=== PATIENT | male | born 1975 | race Caucasian/White ===

== ENCOUNTER 2023-07-05 09:04 | Outpatient (AMB) | payer OTHER, SELFPAY ==
--- NOTE | 2023-07-05 09:11 | A.OFFVIS_ITS ---
Intake Intake Visit Reasons: Penile pain Intake Note: New Patient presents for initial visit for penile pain Urology Medications: none Blood Thinner: none Geospatial Scientist Required: No Accompanied by: Self / Same As Patient Allergies Penicillins [PENICILLINS] Allergy (Unknown, Unverified 07/05/23 20:42) HIVES Medication List - Last Reconciled 07/05/23 by RICHARD Harmon methadone 115ML orally daily; omeprazole 20 mg PO BID quetiapine mg PO sertraline 50 mg PO DAILY sulfamethoxazole-trimethoprim 800-160 mg (Bactrim DS) 1 tab PO BID 14 days topiramate mg PO HPI HPI Comments History of Present Illness Details Andrea is a 45-year-old male patient of Dr. Guevara. 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 He presents to the office today as a new patient for ongoing urological issues. He reports having followed up with [facility] in the past however is looking for other urological options. He discusses over the last 4-5 years to have been experiencing lower urinary tract symptoms. He describes these symptoms to be intermittent however feels when symptoms do reoccur they are progressive. He discusses experiencing urinary frequency, urinary urgency, and dysuria. He also reports feeling intermittent penile pain with urination, during intercourse, and at rest. He discusses at length his concerns regarding his penis. He feels his penis is getting smaller and feels it is sinking into his pelvic area. He discusses previous workup with [facility] and undergoing in office urodynamics and describes this as a terrible experience. He discusses being told by urologist at [facility] to undergo in office cystoscopy however given his past medical history of anxiety and expierence with urodynamics he does not feel he is able to undergo an office cystoscopy and thus is looking for other options. In office urinalysis results reviewed with the patient today. 2+ microscopic hematuria. He does report over 30 year history of cigarette smoking. He reports smoking approximately 1 pack per day. Discussed at length potential causes of microscopic hematuria. Discussed urine cytology, CT urogram, and cystoscopy. In review of patient's chart it appears CT of the abdomen was ordered and performed. Kidneys and ureters with no hydronephrosis, stones, or suspicious masses. The bladder is normal. He discusses at length his follow-up with endocrinology this Tuesday for a noted 8 mm left adrenal nodule noted on CT as well as MRI. Discussed at length potential causes of lower urinary tract symptoms patient has been experiencing. He reports ongoing issues with constipation and is following up with GI regarding this issue. In office LIEN performed boggy prostate noted otherwise no lesions or masses palpated. When asked he denies incontinence, foul smelling urine, changes to urinary stream, flank pain, fever, and or chills. 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 Hemorrhoids Chronic headaches GERD (gastroesophageal reflux disease) Ganglion Foot pain, right Fatty liver Family history of alcohol abuse Erectile dysfunction Constipation Cocaine use disorder in remission Bipolar disorder Arthralgia Anxiety Alcohol use disorder Abdominal pain Review of Systems Const Reports as per HPI Eyes Reports no additional complaints ENT Reports no additional complaints Card Reports as per HPI Resp Reports no additional complaints GI Reports as per HPI Reports as per HPI Musc Reports as per HPI Neuro Reports as per HPI Psych Reports as per HPI Endo Reports as per HPI Physical Exam Const General: cooperative, comfortable, no acute distress, well developed, alert and awake Orientation/consciousness: patient oriented x3 Limitations: no limitations HEENT Head: Yes normal to inspection, Yes normocephalic and Yes atraumatic Ears: hearing grossly normal bilaterally Eyes General: appearance normal, both eyes and all related structures Neck Neck: Yes normal visual inspection and Yes trachea midline Chest Chest palpation & inspection: normal inspection of the chest Resp Effort & Inspection: normal respiratory effort and able to speak in complete sentences Cardio Rate: regular rate GI Inspection: Yes normal to inspection Rectal Exam - Male: Yes other (as per HPI) General: Yes no CVA tenderness Male General Exam: Yes normal external exam Penis: normal penis and circumcised Meatus: meatus normal Scrotum: scrotum normal Testes: Testes normal Back/Spine/Pelvis Back: no CVA tenderness Skin General skin exam: no rashes or lesions noted Neuro General: patient oriented x3 Extrem General: Yes normal to inspection Psych Appearance: grossly normal Mental Status: mental status grossly normal Speech and movement: Normal speech and movement present and Clear speech present Affect: normal affect Attitude: cooperative Thought process: Perseverating thought process present Thought content: Normal thought content present Insight: Fair insight present (Psych) Judgement: Fair judgement present (Psych) Results AMB Urinalysis, Automated UA Leukoctes 15 Mechelle/uL Last Edit by [employer] on 07/05/23 10:07 UA Nitrite Negative Last Edit by [employer] on 07/05/23 10:07 UA Urobilinogen 0.2 mg/dL Last Edit by [employer] on 07/05/23 10:07 UA Protein 15 mg/dL Last Edit by [employer] on 07/05/23 10:07 UA pH 5.5 Last Edit by [employer] on 07/05/23 10:07 UA Blood 10 Festus/uL Last Edit by [employer] on 07/05/23 10:07 UA Specific [place] 1.030 Last Edit by [employer] on 07/05/23 10:07 UA Ketone Positive Last Edit by [employer] on 07/05/23 10:07 UA Bilirubin 1 mg/dL Last Edit by [employer] on 07/05/23 10:07 UA Glucose 0 mg/dL Last Edit by [employer] on 07/05/23 10:07 Results Reviewed Results Reviewed: Laboratory Last Values Urine pH (Auto) 5.5 07/05/23 10:06 Specific [place] (Auto) 1.030 07/05/23 10:06 Urine Protein (Auto) 15 mg/dL 07/05/23 10:06 Glucose (UA)(Auto) 0 mg/dL 07/05/23 10:06 Urine Ketones (Auto) Positive 07/05/23 10:06 Urine Blood (Auto) 10 Festus/uL 07/05/23 10:06 Urine Nitrite (Auto) Negative 07/05/23 10:06 Urine Bilirubin (Auto) 1 mg/dL 07/05/23 10:06 Urine Urobilinogen (Auto) 0.2 mg/dL 07/05/23 10:06 Leukocyte Esterase (Auto) 15 Mechelle/uL 07/05/23 10:06 Assessment & Plan Assessment & Plan (1) Lower urinary tract symptoms: Code(s): R39.9 - Unspecified symptoms and signs involving the genitourinary system (2) Prostatitis: Code(s): N41.9 - Inflammatory disease of prostate, unspecified (3) Microscopic hematuria: Code(s): R31.29 - Other microscopic hematuria (4) Nicotine addiction: Code(s): F17.200 - Nicotine dependence, unspecified, uncomplicated Plan In office urinalysis results reviewed with the patient today; as noted above; will send for urine cytology. Recent CT results reviewed with the patient today; as noted above. LIEN performed boggy prostate noted; discussed prostatitis Start Bactrim as discussed and prescribed. Discussed at length potential causes for lower urinary tract symptoms patient is experiencing. Discussed attempting to schedule for cystoscopy under sedation due to patient's past medical history; patient reports he would like to think about this. Discussed, educated, and stressed the importance of limiting/quitting smoking for overall health and well-being. Reassurance provided regarding patient's thoughts of penile atrophy. Discussed possible near future transrectal ultrasound for further assessment of possible ejaculatory duct obstruction Discussed at length lifestyle modifications for erectile dysfunction Discussed, educated, and encouraged on the importance of drinking plenty of water daily. Discussed bladder triggers/irritants. Medical release form signed will attempt to obtain previous urology records for continuity of care. Will obtain PSA in 6 weeks Follow-up in 1 month with [facility]; or sooner with any issues, concerns, and or questions. Orders: Orders AMB Urinalysis Automated Today Z13.9 - Encounter for screening, unspecified Urine Cytology Today Z13.9 - Encounter for screening, unspecified Prostate Specific Antigen 6 Weeks N40.0 - Benign prostatic hyperplasia without lower urinary tract symptoms Medications: New sulfamethoxazole-trimethoprim 800-160 mg (Bactrim DS) 1 tab PO BID 14 days 28 tabs 0RF N39.0 - Urinary tract infection, site not specified Patient Instructions: The patient had an opportunity to ask questions regarding the treatment plan. All questions were answered. Physical exam, labs, and imaging were discussed and reviewed in detail. As well as risks, benefits, and discussion of treatment choices. No major barriers to understanding were identified. The patient expressed understanding and agreement with the above treatment plan. The patient was made aware they should contact our office by phone for worsening of their current condition, the appearance of new symptoms, or with any questions or concerns. Compliance is encouraged with any medications and follow up testing that is ordered. It is a privilege to be allowed the opportunity to participate in? your urological care.? Again, if you have any questions or concerns If you have any questions or concerns please do not hesitate to contact me. The office is [phone]. This note is constructed using voice recognition software. While every effort has been made to ensure accuracy thermospray operator errors may have been included. Yours sincerely, RICHARD Harmon Coding Level of Care Code New Pt Level 4 (31254) Diagnoses Lower urinary tract symptoms R39.9 Prostatitis N41.9 Microscopic hematuria R31.29 Nicotine addiction F17.200 Time Spent (min) 60
== END 2023-07-05 10:26 | disposition home or self-care (01) ==
PROVIDERS: PCP Internal Medicine; Visit Provider Nurse Practitioner Family
DX: R39.9 Unspecified symptoms and signs involving the genitourinary system (principal); N41.9 Inflammatory disease of prostate, unspecified; R31.29 Other microscopic hematuria; F17.200 Nicotine dependence, unspecified, uncomplicated
CPT/HCPCS: 99204

== ENCOUNTER 2023-07-05 09:04 | Outpatient (REF) | payer OTHER, SELFPAY ==
[2023-07-05 16:58] LABS: Urine Cytology See Pathology rpt
== END 2023-07-05 09:05 | disposition home or self-care (01) ==
LOC: HO.LNP 09:04
PROVIDERS: PCP Internal Medicine; Visit Provider Nurse Practitioner Family
DX: R39.9 Unspecified symptoms and signs involving the genitourinary system (principal); N41.9 Inflammatory disease of prostate, unspecified; R31.29 Other microscopic hematuria; F17.200 Nicotine dependence, unspecified, uncomplicated
CPT/HCPCS: 81003; 88112; 99202

== ENCOUNTER 2023-08-16 11:41 | Outpatient (AMB) | payer OTHER, SELFPAY ==
--- NOTE | 2023-08-16 11:50 | A.OFFVIS_ITS ---
Intake Intake Visit Reasons: 1 month f/u with [facility] Intake Note: Patient presents for follow up visit for prosatitis, psa lab results (psa 0.7) Urology Medications: none Blood Thinner: none Job Training Supervisor Required: No Accompanied by: Unknown Allergies Penicillins [PENICILLINS] Allergy (Unknown, Unverified 08/16/23 14:48) HIVES Medication List - Last Reconciled 08/16/23 by OSMIN Harmon-CLINT methadone 115ML orally daily; omeprazole 20 mg PO BID quetiapine mg PO sertraline 50 mg PO DAILY topiramate mg PO HPI HPI Comments History of Present Illness Details Andrea is a 48-year-old male patient of Dr. Guevara who was accompanied by his least at today's office visit. 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 He presents to the office today for follow-up. Of note, patient was seen approximately 6 weeks ago as a new patient for ongoing urological issues. He reports having followed up with [facility] in the past however is looking for other urological options. He discusses over the last 4-5 years to have been experiencing lower urinary tract symptoms. He describes these symptoms to be intermittent however feels when symptoms do reoccur they are progressive. He discusses experiencing urinary frequency, urinary urgency, urinary hesitancy, and dysuria. He also reports feeling intermittent penile pain with urination, during intercourse, and at rest. He discusses at length his concerns regarding his penis. He feels his penis is getting smaller and feels it is sinking into his pelvic area. He discusses previous workup with [facility] and undergoing in office urodynamics and describes this as a terrible experience. He discusses being told by urologist at [facility] to undergo in office cystoscopy however given his past medical history of anxiety and expierence with urodynamics he does not feel he is able to undergo an office cystoscopy and thus is looking for other options. Patient with previous CT of the abdomen noting kidneys and ureters with no hydronephrosis, stones, or suspicious masses. The bladder is normal. He reports noting episodes of gross hematuria. In office urinalysis today with no microscopic hematuria noted. Recent PSA results reviewed with the patient today. 07/30--0.7. Discussed given smoking history of 30+ years of approximately 1 pack per day and gross hematuria will arrange for cystoscopy under sedation given patient's history of anxiety. Patient discusses at length feeling multiple health issues that are ongoing however all workup has been essentially negative. He discusses following up with endocrinology for his 8 mm left adrenal nodule noted on CT and MRI. He also reports ongoing issues with constipation and is following up with GI regarding this issue and feels during last office visit LIEN was helpful in relieving his constipation. When asked he denies incontinence, foul smelling urine, changes to urinary stream, flank pain, fever, and or chills. Urine cytology 06/30 Negative for high-grade urothelial carcinoma. 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 Hemorrhoids Chronic headaches GERD (gastroesophageal reflux disease) Ganglion Foot pain, right Fatty liver Family history of alcohol abuse Erectile dysfunction Constipation Cocaine use disorder in remission Bipolar disorder Arthralgia Anxiety Alcohol use disorder Abdominal pain Review of Systems Const Reports as per HPI Eyes Reports no additional complaints ENT Reports no additional complaints Card Reports as per HPI Resp Reports no additional complaints GI Reports as per HPI Reports as per HPI Musc Reports as per HPI Neuro Reports as per HPI Psych Reports as per HPI Endo Reports as per HPI Physical Exam Const General: cooperative, comfortable, no acute distress, well developed, alert and awake Orientation/consciousness: patient oriented x3 Limitations: no limitations HEENT Head: Yes normal to inspection, Yes normocephalic and Yes atraumatic Ears: hearing grossly normal bilaterally Eyes General: appearance normal, both eyes and all related structures Neck Neck: Yes normal visual inspection and Yes trachea midline Chest Chest palpation & inspection: normal inspection of the chest Resp Effort & Inspection: normal respiratory effort and able to speak in complete sentences Cardio Rate: regular rate GI Inspection: Yes normal to inspection Rectal Exam - Male: Yes other (as per HPI) General: Yes no CVA tenderness Male General Exam: Yes normal external exam Penis: normal penis and circumcised Meatus: meatus normal Scrotum: scrotum normal Testes: Testes normal Back/Spine/Pelvis Back: no CVA tenderness Skin General skin exam: no rashes or lesions noted Neuro General: patient oriented x3 Extrem General: Yes normal to inspection Psych Appearance: grossly normal Mental Status: mental status grossly normal Speech and movement: Normal speech and movement present and Clear speech present Affect: normal affect Attitude: cooperative Thought process: Perseverating thought process present Thought content: Normal thought content present Insight: Fair insight present (Psych) Judgement: Fair judgement present (Psych) Office Procedures Post Void Residual Post Residual Void Post Void Residual (PVR): 24 [id number] Void Residual by ultrasound Results AMB Urinalysis, Automated UA Leukoctes 0 Mechelle/uL Last Edit by [employer] on 08/16/23 12:12 UA Nitrite Negative Last Edit by [employer] on 08/16/23 12:12 UA Urobilinogen 0.2 mg/dL Last Edit by [employer] on 08/16/23 12:12 UA Protein 0 mg/dL Last Edit by [employer] on 08/16/23 12:12 UA pH 6.0 Last Edit by [employer] on 08/16/23 12:12 UA Blood 0 Festus/uL Last Edit by [employer] on 08/16/23 12:12 UA Specific [place] 1.025 Last Edit by [employer] on 08/16/23 12:12 UA Ketone Negative Last Edit by [employer] on 08/16/23 12:12 UA Bilirubin 0 mg/dL Last Edit by [employer] on 08/16/23 12:12 UA Glucose 0 mg/dL Last Edit by [employer] on 08/16/23 12:12 Results Reviewed Results Reviewed: Laboratory Last Values Urine pH (Auto) 6.0 08/16/23 11:58 Specific [place] (Auto) 1.025 08/16/23 11:58 Urine Protein (Auto) 0 mg/dL 08/16/23 11:58 Glucose (UA)(Auto) 0 mg/dL 08/16/23 11:58 Urine Ketones (Auto) Negative 08/16/23 11:58 Urine Blood (Auto) 0 Festus/uL 08/16/23 11:58 Urine Nitrite (Auto) Negative 08/16/23 11:58 Urine Bilirubin (Auto) 0 mg/dL 08/16/23 11:58 Urine Urobilinogen (Auto) 0.2 mg/dL 08/16/23 11:58 Leukocyte Esterase (Auto) 0 Mechelle/uL 08/16/23 11:58 Assessment & Plan Assessment & Plan (1) Lower urinary tract symptoms: Code(s): R39.9 - Unspecified symptoms and signs involving the genitourinary system (2) Prostatitis: Code(s): N41.9 - Inflammatory disease of prostate, unspecified (3) Microscopic hematuria: Code(s): R31.29 - Other microscopic hematuria Plan: Risks, benefits and alternatives to therapy were discussed. These include but are not limited to infection, bleeding, damage to local organs and tissues, need for further interventions. ? Anesthetic risks regarding cardiac arrhythmia, blood clots, and potential mortality were discussed. The patient understands the typical recovery time and the outpatient nature of the procedure. After consideration of these risks the patient gives full informed consent and they wish to move ahead with the procedure. (4) Nicotine addiction: Code(s): F17.200 - Nicotine dependence, unspecified, uncomplicated Plan In office urinalysis results reviewed with the patient today; as noted above Recent PSA results reviewed with the patient today; as noted above. Previous urine cytology results reviewed with the patient today; as noted above. Patient reporting gross hematuria with a longstanding history of nicotine dependence Will arrange for cystoscopy under sedation for further assessment evaluation at this time. Discussed at length potential causes for lower urinary tract symptoms patient is experiencing. Discussed, educated, and stressed the importance of limiting/quitting smoking for overall health and well-being. Reassurance provided regarding patient's thoughts of penile atrophy. Discussed possible near future transrectal ultrasound for further assessment of possible ejaculatory duct obstruction Discussed at length lifestyle modifications for erectile dysfunction Discussed, educated, and encouraged on the importance of drinking plenty of water daily. Discussed bladder triggers/irritants. Follow-up status post cystoscopy with sedation per Dr. Christopher's order; or sooner with any issues, concerns, and or questions. Orders: Orders AMB Post Void Residual by ultrasound Today R39.9 - Unspecified symptoms and signs involving the genitourinary system AMB Urinalysis Automated Today Z13.9 - Encounter for screening, unspecified Patient Instructions: The patient had an opportunity to ask questions regarding the treatment plan. All questions were answered. Physical exam, labs, and imaging were discussed and reviewed in detail. As well as risks, benefits, and discussion of treatment choices. No major barriers to understanding were identified. The patient expressed understanding and agreement with the above treatment plan. The patient was made aware they should contact our office by phone for worsening of their current condition, the appearance of new symptoms, or with any questions or concerns. Compliance is encouraged with any medications and follow up testing that is ordered. It is a privilege to be allowed the opportunity to participate in? your urological care.? Again, if you have any questions or concerns If you have any questions or concerns please do not hesitate to contact me. The office is [phone]. This note is constructed using voice recognition software. While every effort has been made to ensure accuracy insurance marketing specialist errors may have been included. Yours sincerely, RICHARD Harmon Coding Level of Care Code Est Pt Level 4 (93457) Diagnoses Lower urinary tract symptoms R39.9 Prostatitis N41.9 Microscopic hematuria R31.29 Nicotine addiction F17.200 CPT Codes Post Residual Void - [facility] CPT Code: 40027-Clmr Void Residual by ultrasound ([id number])
== END 2023-08-16 12:35 | disposition home or self-care (01) ==
PROVIDERS: PCP Internal Medicine; Visit Provider Nurse Practitioner Family
DX: R39.9 Unspecified symptoms and signs involving the genitourinary system (principal); N41.9 Inflammatory disease of prostate, unspecified; R31.29 Other microscopic hematuria; F17.200 Nicotine dependence, unspecified, uncomplicated
CPT/HCPCS: 99214

== ENCOUNTER → 2023-08-16 11:41 | Outpatient (BNVA) | payer OTHER, SELFPAY | PROVIDERS: PCP Internal Medicine; Visit Provider Nurse Practitioner Family | DX: R39.9 Unspecified symptoms and signs involving the genitourinary system (principal); R31.29 Other microscopic hematuria; N41.9 Inflammatory disease of prostate, unspecified; F17.200 Nicotine dependence, unspecified, uncomplicated | CPT/HCPCS: 51798; 81003; 99212 ==

== ENCOUNTER 2023-10-11 13:57 | Outpatient (AMB) | payer OTHER, SELFPAY ==
--- NOTE | 2023-10-11 13:59 | A.OFFVIS_ITS ---
Intake Intake Visit Reasons: H&P OR Cystoscopy Intake Note: Patient presents today for a telehealth follow up on: H&P OR Cystoscopy Allergies to antibiotics: Penicillins Blood thinners: None medications: None Regional [facility] Manager Required: No Accompanied by: Self / Same As Patient Allergies Penicillins [PENICILLINS] Allergy (Unknown, Verified 10/11/23 14:09) HIVES Medication List - Last Reconciled 10/11/23 by RICHARD Harmon methadone 115ML orally daily; omeprazole 20 mg PO BID quetiapine mg PO sertraline 50 mg PO DAILY topiramate mg PO HPI HPI Comments History of Present Illness Details Andrea is a 48-year-old male patient of Dr. Guevara. 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 He is being followed up on today via telehealth as he is undergoing cystoscopy under sedation planned for 10/16 for further assessment evaluation for reports of gross hematuria in the setting of nicotine dependence. He discusses his longstanding history of multiple urological issues and had been following up with [facility] however does wish to continue with his urological care at this facility. He discusses over the last 4-5 years to have been experiencing lower urinary tract symptoms. He describes these symptoms to be intermittent however feels when symptoms do reoccur they are progressive. He discusses experiencing urinary frequency, urinary urgency, urinary hesitancy, and dysuria. He also reports feeling intermittent penile pain with urination, during intercourse, and at rest. He discusses at length his concerns regarding his penis. He feels his penis is getting smaller and feels it is sinking into his pelvic area. He discusses previous workup with [facility] and undergoing in office urodynamics and describes this as a terrible experience. He discusses being told by urologist at [facility] to undergo in office cystoscopy however given his past medical history of anxiety and experience with urodynamics he does not feel he is able to undergo an office cystoscopy and thus is looking for other options. Patient with previous CT of the abdomen noting kidneys and ureters with no hydronephrosis, stones, or suspicious masses. The bladder is normal. He states he continues with episoded of gross hematuria. PSA: 07/30--0.7. Discussed given smoking history of 30+ years of approximately 1 pack per day and gross hematuria will arrange for cystoscopy under sedation given patient's history of anxiety. When asked he denies incontinence, foul smelling urine, changes to urinary stream, flank pain, fever, and or chills. Urine cytology 06/30 Negative for high-grade urothelial carcinoma. 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 Hemorrhoids Chronic headaches GERD (gastroesophageal reflux disease) Ganglion Foot pain, right Fatty liver Family history of alcohol abuse Erectile dysfunction Constipation Cocaine use disorder in remission Bipolar disorder Arthralgia Anxiety Alcohol use disorder Abdominal pain Review of Systems Const Reports as per HPI Eyes Reports no additional complaints ENT Reports no additional complaints Card Reports as per HPI Resp Reports no additional complaints GI Reports as per HPI Reports as per HPI Musc Reports as per HPI Neuro Reports as per HPI Psych Reports as per HPI Endo Reports as per HPI Physical Exam Const General: cooperative Orientation/consciousness: patient oriented x3 Resp Effort & Inspection: able to speak in complete sentences Neuro General: patient oriented x3 Psych Mental Status: mental status grossly normal Speech and movement: Clear speech present Attitude: cooperative Thought content: Normal thought content present Insight: Fair insight present (Psych) Judgement: Fair judgement present (Psych) Assessment & Plan Assessment & Plan (1) Lower urinary tract symptoms: Code(s): R39.9 - Unspecified symptoms and signs involving the genitourinary system (2) Prostatitis: Code(s): N41.9 - Inflammatory disease of prostate, unspecified (3) Microscopic hematuria: Code(s): R31.29 - Other microscopic hematuria Plan: Risks, benefits and alternatives to therapy were discussed. These include but are not limited to infection, bleeding, damage to local organs and tissues, need for further interventions. ? Anesthetic risks regarding cardiac arrhythmia, blood clots, and potential mortality were discussed. The patient understands the typical recovery time and the outpatient nature of the procedure. After consideration of these risks the patient gives full informed consent and they wish to move ahead with the procedure. (4) Nicotine addiction: Code(s): F17.200 - Nicotine dependence, unspecified, uncomplicated Plan Discussed at length further assessment evaluation with cystoscopy given reports of gross hematuria in the setting of nicotine dependence. Cystoscopy under sedation scheduled for 10/16; discussed risks and benefits at length. All questions were answered. Discussed, educated, and stressed the importance of limiting/quitting smoking for overall health and well-being. Reassurance provided regarding patient's thoughts of penile atrophy. Discussed possible near future transrectal ultrasound for further assessment of possible ejaculatory duct obstruction. Discussed at length lifestyle modifications for erectile dysfunction. Discussed, educated, and encouraged on the importance of drinking plenty of water daily. Discussed bladder triggers/irritants. Follow-up status post cystoscopy with sedation per Dr. Christopher's order; or sooner with any issues, concerns, and or questions. Patient Instructions: The patient had an opportunity to ask questions regarding the treatment plan. All questions were answered. Physical exam, labs, and imaging were discussed and reviewed in detail. As well as risks, benefits, and discussion of treatment choices. No major barriers to understanding were identified. The patient expressed understanding and agreement with the above treatment plan. The patient was made aware they should contact our office by phone for worsening of their current condition, the appearance of new symptoms, or with any questions or concerns. Compliance is encouraged with any medications and follow up testing that is ordered. It is a privilege to be allowed the opportunity to participate in? your urological care.? Again, if you have any questions or concerns If you have any questions or concerns please do not hesitate to contact me. The office is [phone]. This note is constructed using voice recognition software. While every effort has been made to ensure accuracy child attendant errors may have been included. Yours sincerely, [facility] Tele[facility] Telehealth Location of provider rendering services: practice address Location of patient: address on file Patient Identification confirmed using: Name, : Yes Telehealth method: video Patient verbally consented to treatment: Yes Patient verbally consented to billing insurance company: Yes Patient informed of any privacy concerns related to visit: Yes Minutes spent on Phone/Video with Pt.: 20 Coding Level of Care Code Tele Est Pt Level 4 (52445) Diagnoses Lower urinary tract symptoms R39.9 Prostatitis N41.9 Microscopic hematuria R31.29 Nicotine addiction F17.200
== END 2023-10-11 14:16 | disposition home or self-care (01) ==
LOC: HO.HUSH 13:57
PROVIDERS: PCP Internal Medicine; Visit Provider Nurse Practitioner Family
DX: R39.9 Unspecified symptoms and signs involving the genitourinary system (principal); N41.9 Inflammatory disease of prostate, unspecified; R31.29 Other microscopic hematuria; F17.200 Nicotine dependence, unspecified, uncomplicated
CPT/HCPCS: 99214

== ENCOUNTER → 2023-10-11 13:57 | Outpatient (BNVA) | payer OTHER, SELFPAY | PROVIDERS: PCP Internal Medicine; Visit Provider Nurse Practitioner Family ==

== ENCOUNTER 2023-10-17 12:45 | Day surgery (SDC) | payer OTHER, SELFPAY ==
[2023-10-17 12:53] VITALS: BMI 26.1
[2023-10-17 13:28] VITALS: BP 121/78; PULSE 77; RESP 16; TEMP 36.8; O2SAT 96
[2023-10-17] MEDS: Lactated Ringers 1,000 ML 80 ML IVCONT (13:41)
[2023-10-17] MEDS: levoFLOXacin 500 MG TABLET PO (13:41)
--- NOTE | 2023-10-17 14:24 | HO.ANESPROP2 ---
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 Hemorrhoids Chronic headaches GERD (gastroesophageal reflux disease) Ganglion Foot pain, right Fatty liver Family history of alcohol abuse Erectile dysfunction Constipation Cocaine use disorder in remission Bipolar disorder Arthralgia Anxiety Alcohol use disorder Abdominal pain Functional capacity: independent ambulation Social History Social History Patient Tobacco Use Status: Current everyday Tobacco user Tobacco use type: Cigarette Cigarette Packs Per Day: 1 Cigarettes Per Day: 20.0 Use of substances other than those prescribed or required for medical reasons: Yes Are you DNR?: No Advance Directives: No Advance Directives Information Provided: Yes Meds Allergies Allergy/AdvReac Type Severity Reaction Status Date / Time Penicillins [PENICILLINS] Allergy Unknown HIVES Verified 10/11/23 14:09 Active Medications: Current Medications Fentanyl (Fentanyl Citrate/Pf 100 Mcg/2 Ml Vial) 25 mcg IVPUSH Q5M PRN; Protocol PRN Reason: Pain, Moderate(Pain Scale 4-6) Hydromorphone HCl (Hydromorphone Hcl 0.5 Mg/0.5 Ml Syringe) 0.5 mg IVPUSH Q5M PRN; Protocol PRN Reason: Pain, Severe (Pain Scale 7-10) Lactated Ringer's (Lr) 1,000 mls @ 80 mls/hr IVCONT .[id number] KASIE Last Admin: 10/17/23 13:41 Dose: 80 mls/hr Home Medications Medication Instructions Recorded Confirmed Last Taken Type methadone 5 mg/5 mL oral solution See Rx Instructions PO DAILY 07/05/23 10/17/23 07:00 History omeprazole 20 mg capsule,delayed 20 mg PO BID 07/05/23 Unknown History release quetiapine 200 mg tablet mg PO 07/05/23 10/17/23 07:00 History sertraline 50 mg tablet 50 mg PO DAILY 07/05/23 10/17/23 07:00 History topiramate 25 mg tablet mg PO 07/05/23 10/17/23 07:00 History Exam Height,Weight and Vital Signs: Height 5 ft 7 in Weight 75.523 kg Last Vital Signs Temp 98.3 F 10/17/23 13:28 Pulse 77 10/17/23 13:28 Resp 16 10/17/23 13:28 BP 121/78 10/17/23 13:28 Pulse Ox 96 10/17/23 13:28 O2 Del Method Room Air 10/17/23 13:28 Airway Mallampati Class: II TM Dist: >3cm Neck ROM: Full Loose/Missing/Broken Teeth: No Heart: rrr Lungs: cta b/l Assessment and Plan Final Anesthetic Review ASA Class: II Final Preanesthetic Review: No Changes in Pt Med Stat, Meds/Allgs Chart Reviewed, Consent Obtained/Reviewed and Anes Risks/Benef Reviewed Patient Risk: Intermediate Procedure Risk: Intermediate Anesthetic Plan Anesthetic Plan: MAC: Disposition: Standard PACU
--- NOTE | 2023-10-17 14:36 | HO.ANESPROP2 ---
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 Hemorrhoids Chronic headaches GERD (gastroesophageal reflux disease) Ganglion Foot pain, right Fatty liver Family history of alcohol abuse Erectile dysfunction Constipation Cocaine use disorder in remission Bipolar disorder Arthralgia Anxiety Alcohol use disorder Abdominal pain Functional capacity: independent ambulation Family History Family history of problems with anesthesia: No Surgical History History of Problems with Anesthesia: No Social History Social History Patient Tobacco Use Status: Current everyday Tobacco user Tobacco use type: Cigarette Cigarette Packs Per Day: 1 Cigarettes Per Day: 20.0 Use of substances other than those prescribed or required for medical reasons: Yes Are you DNR?: No Advance Directives: No Advance Directives Information Provided: Yes Meds Allergies Allergy/AdvReac Type Severity Reaction Status Date / Time Penicillins [PENICILLINS] Allergy Unknown HIVES Verified 10/11/23 14:09 Active Medications: Current Medications Fentanyl (Fentanyl Citrate/Pf 100 Mcg/2 Ml Vial) 25 mcg IVPUSH Q5M PRN; Protocol PRN Reason: Pain, Moderate(Pain Scale 4-6) Hydromorphone HCl (Hydromorphone Hcl 0.5 Mg/0.5 Ml Syringe) 0.5 mg IVPUSH Q5M PRN; Protocol PRN Reason: Pain, Severe (Pain Scale 7-10) Lactated Ringer's (Lr) 1,000 mls @ 80 mls/hr IVCONT .[id number] KASIE Last Admin: 10/17/23 13:41 Dose: 80 mls/hr Home Medications Medication Instructions Recorded Confirmed Last Taken Type methadone 5 mg/5 mL oral solution See Rx Instructions PO DAILY 07/05/23 10/17/23 07:00 History omeprazole 20 mg capsule,delayed 20 mg PO BID 07/05/23 Unknown History release quetiapine 200 mg tablet mg PO 07/05/23 10/17/23 07:00 History sertraline 50 mg tablet 50 mg PO DAILY 07/05/23 10/17/23 07:00 History topiramate 25 mg tablet mg PO 07/05/23 10/17/23 07:00 History Exam Height,Weight and Vital Signs: Height 5 ft 7 in Weight 75.523 kg Last Vital Signs Temp 98.3 F 10/17/23 13:28 Pulse 77 10/17/23 13:28 Resp 16 10/17/23 13:28 BP 121/78 10/17/23 13:28 Pulse Ox 96 10/17/23 13:28 O2 Del Method Room Air 10/17/23 13:28 Airway Mallampati Class: II TM Dist: >3cm Neck ROM: Full Loose/Missing/Broken Teeth: No Heart: rrr Lungs: cta b/l Assessment and Plan Assessment Anesthesia Assessment: Anesthesia Plan Discussed, Smoking Cess. Discussed and Chart Reviewed Final Anesthetic Review Family History of Problems with Anesthesia: No History of Problems with Anesthesia: No NPO: Yes ASA Class: II Final Preanesthetic Review: No Changes in Pt Med Stat, Meds/Allgs Chart Reviewed, Consent Obtained/Reviewed and Anes Risks/Benef Reviewed Patient Risk: Intermediate Procedure Risk: Intermediate Anesthetic Plan Anesthetic Plan: MAC: Disposition: Standard PACU
--- NOTE | 2023-10-17 14:44 | MHC.SHP ---
Pre-Procedural Eval Section A - 24 Hr Update-Section A only Date of Service: 10/17/23 The patient is an INPATIENT: No Changes since office visit: No Cold of Flu in the past 2 weeks, No New Medical Problems, No Changes in Medication and No Patient answered all questions The patient has been examined within 24 hours of the surgical procedure. The History & Physical has been completed within 30 days and I have reviewed it.: Yes Section B - Complete if H&P > 30 days Chief Complaint: Unspecified symptoms and signs involving the genit Allergies: Allergies Allergy/AdvReac Type Severity Reaction Status Date / Time Penicillins [PENICILLINS] Allergy Unknown HIVES Verified 10/11/23 14:09 Review of Systems Sugical H&P ROS: Negative: Constitution, Cardiovascular, Respiratory, Neurological, Psychiatric, Hem-Onc, Allergic/Immunologic, Gastrointestinal, Genitourinary, Musculoskeletal, Integumentary, Endocrine and Eyes/Ears/Nose/Throat Exam Surgical H&P Exam: Normal: HEENT, Normal: Heart, Normal: Lungs, Normal: Extremities, Normal: Abdomen, Normal: Skin and Normal: Neurological Plan Diagnosis/Plan: Unchanged (Gross hematuria, plan cystoscopy) I have reviewed the history and physical and performed a pertinent physical examination on my patient. No changes have occurred unless specified. Time Spent With Patient Time: Total time managing care of this patient today ____ minutes.
--- NOTE | 2023-10-17 15:05 | W.PM.OPN ---
Operative Note Operative Note Date of Service: 10/17/23 Narrative: PreOperative Diagnosis: Gross hematuria Post Operative Diagnosis: Gross hematuria Procedure: Cystoscopy Surgeon: Dr Vito Christopher Anesthesia: Sedation Indications for procedure: Gross hematuria Procedure: After informed consent was verified the patient was brought to the operating room and placed in a supine position. Anesthesia was administered per protocol. The patient was prepped and draped in a sterile fashion. Safety pause time-out was performed. Antibiotics being given. Meatus circumcised Urethra anterior and posterior urethra normal Prostatic Urethra unremarkable Bladder examination with retroflexion of cystoscope Bladder Orifices normal shape and position Bladder Capacity medium Trabeculations grade 1 Cellule Formation no Diverticulum Formation no Mucosal Erythema small capillary changes Bladder Tumor -
[2023-10-17 15:08] VITALS: BP 109/71; PULSE 63; RESP 14; TEMP 36.5; O2SAT 92
[2023-10-17 15:13] VITALS: BP 106/70; PULSE 61; RESP 16; O2SAT 92
[2023-10-17 15:23] VITALS: BP 107/79; PULSE 60; RESP 16; O2SAT 97
[2023-10-17 15:38] VITALS: BP 106/79; PULSE 61; RESP 16; O2SAT 97
[2023-10-17] MEDS: Ketorolac Tromethamine 30 MG/ML VIAL 15 MG IVPUSH (15:52)
[2023-10-17 15:53] VITALS: BP 145/90; PULSE 70; RESP 16; TEMP 36.2; O2SAT 98
[2023-10-17] MEDS: Phenazopyridine HCL 100 MG TABLET PO (15:58)
== END 2023-10-17 16:25 | disposition home or self-care (01) ==
PROVIDERS: PCP Internal Medicine; Visit Provider Urology
PROC: 0TJB8ZZ Inspection of Bladder, Via Natural or Artificial Opening Endoscopic (ICD-10-PCS; CPT 52000; principal; 2023-10-17 14:20)
DX: R39.9 Unspecified symptoms and signs involving the genitourinary system (principal); R31.0 Gross hematuria; N32.89 Other specified disorders of bladder; N41.9 Inflammatory disease of prostate, unspecified; N18.30 Chronic kidney disease, stage 3 unspecified; N52.9 Male erectile dysfunction, unspecified; K21.9 Gastro-esophageal reflux disease without esophagitis; K76.0 Fatty (change of) liver, not elsewhere classified; E78.00 Pure hypercholesterolemia, unspecified; Z86.19 Personal history of other infectious and parasitic diseases; Z79.899 Other long term (current) drug therapy; Z88.0 Allergy status to penicillin; F31.9 Bipolar disorder, unspecified; F10.90 Alcohol use, unspecified, uncomplicated; F17.210 Nicotine dependence, cigarettes, uncomplicated; F11.21 Opioid dependence, in remission; F14.91 Cocaine use, unspecified, in remission
CPT/HCPCS: 52000; J1885; J2250; J2704; J3010

== ENCOUNTER → 2023-10-17 12:45 | Outpatient (BNV) | payer OTHER, SELFPAY | PROVIDERS: PCP Internal Medicine; Visit Provider Urology | DX: R31.0 Gross hematuria (principal) | CPT/HCPCS: 52000 ==

== ENCOUNTER 2023-11-02 13:40 | Outpatient (AMB) | payer OTHER, SELFPAY ==
--- NOTE | 2023-11-02 13:43 | A.OFFVIS_ITS ---
Intake Intake Visit Reasons: OR Cystoscopy follow up Intake Note: Patient presents today for follow up on microscopic hematuria and prostatitis Urology Medications: None Blood thinners: None Fisher Trammel Net Required: No Accompanied by: Self / Same As Patient Allergies Penicillins [PENICILLINS] Allergy (Unknown, Verified 11/02/23 13:58) HIVES Medication List - Last Reconciled 11/02/23 by WALLACE HarmonP- methadone 115ML orally daily; omeprazole 20 mg PO BID quetiapine mg PO quetiapine mg PO sertraline 50 mg PO DAILY topiramate mg PO HPI HPI Comments History of Present Illness Details Andrea is a 48-year-old male patient of Dr. Guevara. 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 Of note, patient underwent cystoscopy under sedation with Dr. Christopher on 10/16 for fu rther assessment of gross/microscopic hematuria in the setting of nicotine dependence. Cystoscopy-NAD. These results were reviewed with the patient today. He discusses at length feeling ongoing issues with his back, lower urinary tract symptoms, and constipation over the last 5 years. He reports feeling these issues started after having having hurt his back. He reports noting lower urinary tract symptoms of urinary hesitancy are worse when constipated. Discussed at length correlation of lower urinary tract symptoms and constipation. He currently denies any bothersome urinary issues or concerns as he feels he has been attempting to manage his constipation. He does report low libido and erectile dysfunction. He reports at times he is able to obtain an erection however it is not often. He reports having a prescription for as needed Cialis however has not tried the medication. Discussed further workup for low libido and ED patient is experiencing however he discusses he would like to think about this at this time. Discussed methadone and effects of impotency. Discussed sedatives such as methadone can decrease testosterone by blocking synthesis of releasing gonadotropin and testosterone hormones. In office urinalysis results reviewed with the patient today. Previous workup has included a CT of the abdomen noting kidneys and ureters with no hydronephrosis, stones, or suspicious masses. The bladder is normal. PSA: 07/30--0.7. When asked he denies incontinence, foul smelling urine, changes to urinary stream, flank pain, fever, and or chills. Urine cytology 06/30 Negative for high-grade urothelial carcinoma. [facility] Medical History (Updated 11/02/23 @ 20:[address] 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 Hemorrhoids Chronic headaches GERD (gastroesophageal reflux disease) Ganglion Foot pain, right Fatty liver Family history of alcohol abuse Erectile dysfunction Constipation Cocaine use disorder in remission Bipolar disorder Arthralgia Anxiety Alcohol use disorder Abdominal pain Social History Patient Tobacco Use Status: Current everyday Tobacco user Tobacco use type: Cigarette Cigarette Packs Per Day: 1 Cigarettes Per Day: 20.0 Review of Systems Const Reports as per HPI Eyes Reports no additional complaints ENT Reports no additional complaints Card Reports as per HPI Resp Reports no additional complaints GI Reports as per HPI Reports as per HPI Musc Reports as per HPI Neuro Reports as per HPI Psych Reports as per HPI Endo Reports as per HPI Physical Exam Const General: cooperative, comfortable, no acute distress, well developed, alert and awake Orientation/consciousness: patient oriented x3 Limitations: no limitations HEENT Head: Yes normal to inspection, Yes normocephalic and Yes atraumatic Ears: hearing grossly normal bilaterally Eyes General: appearance normal, both eyes and all related structures Neck Neck: Yes normal visual inspection and Yes trachea midline Chest Chest palpation & inspection: normal inspection of the chest Resp Effort & Inspection: able to speak in complete sentences Cardio Rate: regular rate GI Inspection: Yes normal to inspection Rectal Exam - Male: Yes other (as per HPI) General: Yes no CVA tenderness Male General Exam: Yes normal external exam Penis: normal penis and circumcised Meatus: meatus normal Scrotum: scrotum normal Testes: Testes normal Back/Spine/Pelvis Back: no CVA tenderness Skin General skin exam: no rashes or lesions noted Neuro General: patient oriented x3 Extrem General: Yes normal to inspection Psych Appearance: grossly normal Mental Status: mental status grossly normal Speech and movement: Clear speech present Affect: normal affect Attitude: cooperative Thought process: Perseverating thought process present Thought content: Normal thought content present Insight: Fair insight present (Psych) Judgement: Fair judgement present (Psych) Results AMB Urinalysis, Automated UA Leukoctes 15 Mechelle/uL Last Edit by Hina Cruz on 11/02/23 14:02 UA Nitrite Negative Last Edit by Hina Cruz on 11/02/23 14:02 UA Urobilinogen 0.2 mg/dL Last Edit by Hina Cruz on 11/02/23 14:02 UA Protein 30 mg/dL Last Edit by Emote Gamesestela A vida é feita de Descont[employer]arish on 11/02/23 14:02 UA pH 5.5 Last Edit by Narusparish on 11/02/23 14:02 UA Blood 10 Festus/uL Last Edit by [email or web address] on 11/02/23 14:02 UA Specific [place] 1.030 Last Edit by [email or web address] on 11/02/23 14:02 UA Ketone Positive Last Edit by Emote Gamesestela Cruz on 11/02/23 14:02 UA Bilirubin 1 mg/dL Last Edit by Emote Gamesestela Cruz on 11/02/23 14:02 UA Glucose 0 mg/dL Last Edit by [email or web address] vida é feita de Descontoparish on 11/02/23 14:02 Results Reviewed Results Reviewed: Laboratory Last Values Urine pH (Auto) 5.5 11/02/23 13:48 Specific [place] (Auto) 1.030 11/02/23 13:48 Urine Protein (Auto) 30 mg/dL 11/02/23 13:48 Glucose (UA)(Auto) 0 mg/dL 11/02/23 13:48 Urine Ketones (Auto) Positive 11/02/23 13:48 Urine Blood (Auto) 10 Festus/uL 11/02/23 13:48 Urine Nitrite (Auto) Negative 11/02/23 13:48 Urine Bilirubin (Auto) 1 mg/dL 11/02/23 13:48 Urine Urobilinogen (Auto) 0.2 mg/dL 11/02/23 13:48 Leukocyte Esterase (Auto) 15 Mechelle/uL 11/02/23 13:48 Assessment & Plan Assessment & Plan (1) Microscopic hematuria: Code(s): R31.29 - Other microscopic hematuria (2) Lower urinary tract symptoms: Code(s): R39.9 - Unspecified symptoms and signs involving the genitourinary system (3) Low libido: Code(s): R68.82 - Decreased libido (4) Erectile dysfunction: Code(s): N52.9 - Male erectile dysfunction, unspecified Plan In office urinalysis results reviewed with the patient today; as noted above. Discussed NAD findings on recent cystoscopy; as noted above. Discussed at length constipation in relation to lower urinary tract symptoms. Patient currently denies any bothersome lower urinary tract symptoms. Continue to follow-up with GI. Discussed further workup of low libido and erectile dysfunction with labs; patient states he will think about this. Discussed affects of methadone on testosterone levels in relation of hypogonadism and erectile dysfunction. Discussed possible near future urodynamics for further assessment evaluation if symptoms arise. Discussed, educated, and stressed the importance of limiting/quitting nicotine dependence for overall health and wellbeing. Discussed, educated, and stressed the importance of drinking plenty of water daily. Follow-up in 3 months; if not sooner with any issues, concerns, and or questions. Orders: Orders AMB Urinalysis Automated Today Z13.9 - Encounter for screening, unspecified Patient Instructions: The patient had an opportunity to ask questions regarding the treatment plan. All questions were answered. Physical exam, labs, and imaging were discussed and reviewed in detail. As well as risks, benefits, and discussion of treatment choices. No major barriers to understanding were identified. The patient expressed understanding and agreement with the above treatment plan. The patient was made aware they should contact our office by phone for worsening of their current condition, the appearance of new symptoms, or with any questions or concerns. Compliance is encouraged with any medications and follow up testing that is ordered. It is a privilege to be allowed the opportunity to participate in? your urological care.? Again, if you have any questions or con cerns If you have any questions or concerns please do not hesitate to contact me. The office is [phone]. This note is constructed using voice recognition software. While every effort has been made to ensure accuracy planning division superintendent errors may have been included. Yours sincerely, RICHARD Harmon Coding Level of Care Code Est Pt Level 4 (37834) Diagnoses Microscopic hematuria R31.29 Lower urinary tract symptoms R39.9 Low libido R68.82 Erectile dysfunction N52.9
== END 2023-11-02 14:23 | disposition home or self-care (01) ==
PROVIDERS: PCP Internal Medicine; Visit Provider Nurse Practitioner Family
DX: R31.29 Other microscopic hematuria (principal); R39.9 Unspecified symptoms and signs involving the genitourinary system; R68.82 Decreased libido; N52.9 Male erectile dysfunction, unspecified
CPT/HCPCS: 99214

== ENCOUNTER → 2023-11-02 13:40 | Outpatient (BNVA) | payer OTHER, SELFPAY | PROVIDERS: PCP Internal Medicine; Visit Provider Nurse Practitioner Family | DX: N41.9 Inflammatory disease of prostate, unspecified (principal); R31.29 Other microscopic hematuria; N18.30 Chronic kidney disease, stage 3 unspecified; N52.9 Male erectile dysfunction, unspecified; R39.9 Unspecified symptoms and signs involving the genitourinary system; R68.82 Decreased libido | CPT/HCPCS: 81003; 99212 ==